=== PATIENT | male | born 1960 | race Caucasian/White ===

== ENCOUNTER 2016-10-08 16:20 | Emergency (ER) | payer MEDICARE, OTHER ==
[~2016-10-08 16:20] MED LIST: ALLEGRA180 MG; ALPRAZOLAM0.5 M3 PO; AMLODIPINE BESY10 M1 PO; AMLODIPINE BESY10 MG PO; ASPIR-LOW81 MG; ASPIRIN81 M1 PO; BABY ASPIRIN81 MG PO; BACTRIM DS TAB1 EAC2 PO; CORTISONE INJECTION; CRESTOR20 MG PO; CRESTOR20 MG/TAB PO; HYDROCHLOROTHIA25 MG; HYDROCODON-ACE1 EA15 PO; HYDROCODONE/APA1 TA; LASIX20 MG PO; LASIX40 M1 PO; LEVAQUIN500 M1 PO; LEXAPRO10 M2 PO; LEXAPRO20 M2 PO; LEXAPRO20 MG; LEXAPRO20 MG PO; LIPITOR40 MG; LISINOPRIL10 M1 PO; LISINOPRIL20 M1 PO; LORTAB 10/500 T1 TAB; LORTAB 10/5001 EA PO; LYRICA150 MG; LYRICA50 MG PO; MAXAIR AUTOHALE14 GM; MAXAIR AUTOHALE14 GM IH; METHADONE HCL10 M1 PO; METHADONE HCL10 MG; METHADONE10 MG/TAB PO; NASONEX17 G1; NASONEX17 GM NS; NORVASC5 MG; OXYCODONE-APAP1 TAB; PAXIL CR12.5 MG; QVAR7.3 G; QVAR7.3 G IH; QVAR8.7 G1 INH; QVAR80MCG; SEREVENT; SEREVENT D50 MCG/DIS IH; SEREVENT DISKU50 MCG INH; SILVER SULFADI400 GM TOP; SULFAMYLON60 GM TP; TESTOSTERO200 MG/1 M IM; TESTOSTERON200 MG/ML IM; TIZANIDINE HCL2 M3 PO; TIZANIDINE HCL4 M1 PO; VENTOLIN HFA18 G2 INH; VIAGRA100 MG; VIAGRA100 MG PO; VITAMIN D50000 UNI2 PO; VITAMIN D50000 UNIT PO
[2016-10-08] MEDS ORDERED: LIDOPATCH1 EAC1 TP (18:23)
== END 2016-10-08 18:50 ==
LOC: EDMED 16:20
DX: M25.552 Pain in left hip (principal); M54.5 Low back pain; I10 Essential (primary) hypertension; W07.XXXA Fall from chair, initial encounter; Y92.009 Unspecified place in unspecified non-institutional (private) residence as the place of occurrence of the external cause
CPT/HCPCS: J1170